=== PATIENT | female | born 1985 | race Caucasian/White ===

== ENCOUNTER 2021-05-03 02:12 | Emergency (ER) | payer OTHER ==
[2021-05-03 02:39] VITALS: BP 128/85; PULSE 68; TEMP 98.3; BMI 38.2
[2021-05-03] MEDS ORDERED: DIPHTH,PERTUSS(ACELL),TET 0.5 ML DISP.SYRIN IM ONE ×2 (03:37→03:50)
== END 2021-05-03 03:55 | disposition home or self-care (01) ==
LOC: JER 02:12
PROC: 3E0234Z Introduction of Serum, Toxoid and Vaccine into Muscle, Percutaneous Approach (ICD-10-PCS; principal; 2021-05-03)
DX: S00.83XA Contusion of other part of head, initial encounter (principal); W54.1XXA Struck by dog, initial encounter
CPT/HCPCS: 90715; 99282-25

== ENCOUNTER 2023-03-26 05:07 | Emergency (ER) | payer OTHER ==
[2023-03-26 05:20] VITALS: BP 140/70; PULSE 76; RESP 18; TEMP 98.5; BMI 40.4
[2023-03-26] MEDS ORDERED: ONDANSETRON 4 MG TABLET PO ONE (05:31)
[2023-03-26] MEDS ORDERED: ONDANSETRON *ODT* 4 MG TABLET ONE (05:40)
[2023-03-26 05:52] LABS: BASO % 0.5 % (0-2.0); EOS % 1.5 % (0-4.5); HEMOGLOBIN 12.2 GM/dL (10.7-15.3); LYMPH % 21.9 % (8-40); MEAN CELL VOLUME 87.7 fl (80-96); MEAN PLT VOLUME 8.2 fl (7.5-11.1); MONO % 8.2 % (3.8-10.2); NEUT % 67.9 % (42.8-82.8); PLATELET COUNT 302 10^3/uL (134-434); RBC 4.22 M/mm3 (3.60-5.2); RDW 14.7 % (11.6-15.6); WHITE BLOOD COUNT 8.2 K/mm3 (4.0-10.0)
[2023-03-26 05:59] LABS: EPI CELLS >36 /uL (0-25.1); HYALINE CASTS 1 /uL (0-3.1); URINE APPEARANCE CLEAR; URINE BACTERIA 511 /uL (0-1359); URINE BILIRUBIN NEGATIVE (NEGATIVE); URINE COLOR YELLOW; URINE GLUCOSE (UA) NEGATIVE (NEGATIVE); URINE KETONE 1+ (NEGATIVE); URINE LEUK ESTERASE NEGATIVE (NEGATIVE); URINE NITRITE NEGATIVE (NEGATIVE); URINE PROTEIN 1+ (NEGATIVE); URINE RBC 43 /uL (0-23.9); URINE WBC 21 /uL (0-25.8)
[2023-03-26 06:11] LABS: POTASSIUM 3.5 mmol/L (3.5-5.1)
[2023-03-26 06:13] LABS: ALBUMIN 3.8 g/dl (3.4-5.0); BLOOD UREA NITROGEN 12.2 mg/dL (7-18); CALCIUM 8.6 mg/dL (8.5-10.1)
[2023-03-26 06:16] LABS: CREATININE 0.8 mg/dL (0.55-1.3)
[2023-03-26 06:18] LABS: BILIRUBIN,TOTAL 0.8 mg/dL (0.2-1); TOT PROT 8.1 g/dl (6.4-8.2)
[2023-03-26 06:19] LABS: HCG,QUALITATIVE URINE NEGATIVE
[2023-03-26] MEDS ORDERED: DIPHENOXYLATE 2.5/ATROPINE.025 1 COMBO TABLET PO ONE (06:31)
[2023-03-26] MEDS ORDERED: SODIUM CHLORIDE 500 ML IV STA (06:31)
[2023-03-26] MEDS ORDERED: DIPHENOXYLATE 2.5/ATROPINE.025 1 COMBO TABLET ONE (06:35)
== END 2023-03-26 07:03 | disposition home or self-care (01) ==
LOC: JER 05:07
PROC: 3E0337Z Introduction of Electrolytic and Water Balance Substance into Peripheral Vein, Percutaneous Approach (ICD-10-PCS; principal; 2023-03-26)
DX: R19.7 Diarrhea, unspecified (principal)
CPT/HCPCS: 36415; 80053; 81003; 84703; 85025; 99284-25